=== PATIENT | female | born 1980 | race Caucasian/White ===

== ENCOUNTER 2023-08-10 18:10 | Emergency (ER) | payer OTHER, SELFPAY ==
[2023-08-10 18:16] VITALS: BP 111/91; PULSE 89; RESP 16; TEMP 36.3; O2SAT 99
[2023-08-10 20:35] VITALS: BP 117/83; PULSE 79; RESP 16; TEMP 36.5; O2SAT 100
--- NOTE | 2023-08-10 23:07 | ED.GENADULT ---
HPI - General Adult General Chief complaint: Animal Bite Stated complaint: possible bat bite Time Seen by Provider: 08/10/23 22:14 History of Present Illness HPI narrative: This is a 42-year-old female presenting with back exposure. Says she opened her daughter's room a bat flew out landed on her chest. No numbness light. She and her children came to the ER for evaluation. Related Data Allergies Allergy/AdvReac Type Severity Reaction Status Date / Time No Known Allergies Allergy Verified 08/10/23 23:11 [facility] Past Medical History Medical History Anxiety Exam Narrative: APPEARANCE: No apparent distress. Head: atraumatic. EYES: EOMI, NOSE: Atraumatic NECK: Trachea midline RESPIRATORY: No increased rate of breathing CARDIOVASCULAR: RRR, ABDOMINAL: Non-distended MUSCULOSKELETAl: No obvious deformities NEURO: Alert. Moving 4/4 extremities SKIN:: Warm, dry. Normal color PSYCHIATRIC: Normal affect Course Vital Signs Vital signs: Vital Signs Temperature 97.3 F L 08/10/23 18:16 Pulse Rate 89 08/10/23 18:16 Respiratory Rate 16 08/10/23 18:16 Blood Pressure 111/91 H 08/10/23 18:16 Pulse Oximetry 99 08/10/23 18:16 Oxygen Delivery Room Air 08/10/23 18:16 Temperature 97.7 F 08/10/23 20:35 Pulse Rate 79 08/10/23 20:35 Respiratory Rate 16 08/10/23 20:35 Blood Pressure 117/83 08/10/23 20:35 Pulse Oximetry 100 08/10/23 20:35 Oxygen Delivery Room Air 08/10/23 18:16 Medical Decision Making [facility] Narrative Medical decision making narrative: -Course: 42-year-old presenting with Bat exposure. Given Tdap vaccine immunoglobulin and Tdap. Given schedule for rabies vaccinations and information was forwarded to our infectious disease nurse. 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 also exposed -Interventions: Rabies vaccine, Rabies immunoglobulin -Shared decision making / Disposition: Discharged Vital Signs Vital Signs: Vital Signs Temperature 97.3 F L 08/10/23 18:16 Pulse Rate 89 08/10/23 18:16 Respiratory Rate 16 08/10/23 18:16 Blood Pressure 111/91 H 08/10/23 18:16 Pulse Oximetry 99 08/10/23 18:16 Oxygen Delivery Room Air 08/10/23 18:16 Temperature 97.7 F 08/10/23 20:35 Pulse Rate 79 08/10/23 20:35 Respiratory Rate 16 08/10/23 20:35 Blood Pressure 117/83 08/10/23 20:35 Pulse Oximetry 100 08/10/23 20:35 Oxygen Delivery Room Air 08/10/23 18:16 Discharge Plan Discharge Clinical Impression: Rabies contact Patient Disposition: Home, Self-Care Condition: Stable Instructions: Antibiotic Form, Rabies Vaccine (By injection), Rabies Immune Globulin (By injection) Additional Instructions: You had a possible rabies exposure. Your given the vaccine and immunoglobulin here in the emergency department. Please follow-up with our Infectious Disease nurse to take care of the rest of your vaccination schedule. You should receive follow up vaccines in 3,7, and 14 days. Prescriptions: New Imovax Rabies Vaccine (PF) 2.5 unit recon soln 2.5 unit IM ONCE Qty: 2 0RF Imovax Rabies Vaccine (PF) 2.5 unit recon soln 2.5 unit IM ONCE Qty: 3 0RF Follow-up/Referrals: PHYSICIAN NOT ON STAFF,NONSTAFF [Primary Care Provider] -
[2023-08-10] MEDS: RABIES VACCINE (RABAVERT) 2.5 UNITS VIAL IM (23:41)
[2023-08-10] MEDS: TETANUS,DIPHTHERIA,AC PERTUSSIS ADULT (0.5 ML) BOOSTRIX IM (23:44)
[2023-08-10] MEDS: RABIES IMMUNE GLOBULIN/PF 300 UNITS/ML VIAL 120 UNITS IM (23:55)
[2023-08-10] MEDS: RABIES IMMUNE GLOBULIN/PF 1,500 UNITS/5 ML VIAL 1500 UNITS IM (23:55)
== END 2023-08-10 23:54 | disposition home or self-care (01) ==
PROVIDERS: Emergency Provider Emergency Medicine
DX: Z20.3 Contact with and (suspected) exposure to rabies (principal); Z29.14 Encounter for prophylactic rabies immune globulin; Z23 Encounter for immunization
CPT/HCPCS: 90375; 90471; 90472; 90675; 90715; 96372; 99284

== ENCOUNTER 2023-08-24 06:02 | Outpatient (RCR) | payer OTHER, SELFPAY | END 2023-11-11 23:59 | disposition home or self-care (01) | LOC: ANHVASCINF 06:02 | PROVIDERS: Visit Provider Emergency Medicine | DX: Z20.3 Contact with and (suspected) exposure to rabies (principal); Z29.14 Encounter for prophylactic rabies immune globulin | CPT/HCPCS: 90471; 90675 ==